=== PATIENT | male | born 1975 | race African-American/Black ===

== ENCOUNTER 2018-12-01 08:14 | Emergency (ER) | payer MEDICAID ==
--- NOTE | 2018-12-01 09:07 | ED Physician Chart ---
ED Chief Complaint/HPI - Patient Information Date Seen:: 12/01/18 Time Seen:: 09:00 Chief Complaint:: chest pain History of Present Illness:: [place] and he developed right-sided crampy chest pain and right arm tingling and numbness. He also experienced mild shortness of breath. For the last 2 days patient's has had right sided chest pain coming every few minutes and lasting about 2 minutes. No diaphoresis. No recent trauma or heavy lifting. Allergies:: Allergies Allergy/AdvReac Type Severity Reaction Status Date / Time No Known Allergies Allergy Verified 12/01/18 08:33 Vitals:: Vital Signs - 8 hr 12/01/18 08:34 Temp 98.4 F HR 66 RR 16 BP 146/79 O2 Sat % 100 Historian:: Patient Review:: Nurse's Note Reviewed ED Review of Systems - Review of Systems General/Constitutional: No fever, No chills, No weight loss, No weakness, No diaphoresis, No edema, No loss of appetite Skin: No skin lesions, No rash, No bruising Head: No headache, No light-headedness Eyes: No loss of vision, No pain, No diplopia ENT: No earache, No nasal drainage, No sore throat, No tinnitus Neck: No neck pain, No swelling, No thyromegaly, No stiffness, No mass noted Cardio Vascular: No palpitations, No PND, No orthopnea, No edema Pulmonary: SOB, No cough, No sputum, No wheezing GI: No nausea, No vomiting, No diarrhea, No pain, No melena, No hematochezia, No constipation, No hematemesis G/U: No dysuria, No frequency, No hematuria Musculoskeletal: Other (tingling and numbness right) Endocrine: No polyuria, No polydipsia Psychiatric: No prior psych history, No depression, No anxiety, No suicidal ideation Hematopoietic: No bruising, No lymphadenopathy Allergic/Immuno: No urticaria, No angioedema Neurological: No syncope, No focal symptoms, No weakness, No paresthesia, No headache, No seizure, No dizziness, No confusion, No vertigo ED Past Medical History - Past Medical History Past Medical History: Asthma/COPD Family History: Heart disease, Diabetes Melitus, Other (cardiomegaly) Social History: Smoker, Alcohol, Other Employment:: Smokes one pack of cigarettes a day and drinks alcohol occasionally Surgical History: other (peptic ulcer disease and fractured mandible) Psychiatricy History: None Medication: None Family Medical History - Family Member Father Hx Family Stroke: Yes ED Physical Exam - Physical Examination General/Constitutional: Awake, Well-developed, well-nourished, Alert, No distress, GCS 15, Non-toxic appearing, Ambulatory Head: Atraumatic Eyes: Lids, conjuctiva normal, PERRL, EOMI Skin: Nl inspection, No rash, No skin lesions, No ecchymosis, Well hydrated, No lymphadenopathy ENMT: External ears, nose nl, Nasal exam nl, Lips, teeth, gums nl Neck: Nontender, Full ROM w/o pain, No JVD, No nuchal rigidity, No bruit, No mass, No stridor Respiratory: Nl effort/Exclusion, Clear to Auscultation, No Wheeze/Rhonchi/Rales Cardio Vascular: RRR, No murmur, gallop, rubs, NL S1 S2 GI: No tenderness/rebounding/guarding, No organomegaly, No hernia, Normal BS's, Nondistended, No mass/bruits, No McBurney tenderness : No CVA tenderness Extremities: No tenderness or effusion, Full ROM, normal strength in all extremities, No edema, Normal digits & nails Neuro/Psych: Alert/oriented, DTR's symmetric, Normal sensory exam, Normal motor strength, Judgement/insight normal, Mood normal, Normal gait, No focal deficits Misc: Normal back, No paraspinal tenderness ED Labs/Radiology/EKG Results - Lab Results Results: Laboratory Results WBC 9.8 Th/cmm (4.8-10.8) 12/01/18 09:15 RBC 4.53 Mil/cmm (4.30-5.70) 12/01/18 09:15 Hgb 14.5 gm/dL (12-16) 12/01/18 09:15 Hct 42.5 % (41.0-60) 12/01/18 09:15 MCV 93.8 fl (80-99) 12/01/18 09:15 MCH 32.0 pg (26.0-30.0) H 12/01/18 09:15 MCHC Differential 34.1 pg (28.0-36.0) 12/01/18 09:15 RDW 11.6 % (11.5-20.0) 12/01/18 09:15 Plt Count 291 Th/cmm (150-400) 12/01/18 09:15 MPV 7.2 fl 12/01/18 09:15 Neutrophils % 71.6 % (40.0-80.0) 12/01/18 09:15 Lymphocytes % 20.0 % (20.0-50.0) 12/01/18 09:15 Monocytes % 5.6 % (2.0-10.0) 12/01/18 09:15 Eosinophils % 1.7 % (0.0-5.0) 12/01/18 09:15 Basophils % 1.1 % (0.0-2.0) 12/01/18 09:15 Sodium 140 mEq/L (136-145) 12/01/18 09:15 Potassium 4.2 mEq/L (3.5-5.1) 12/01/18 09:15 Chloride 107 mEq/L (98-107) 12/01/18 09:15 Carbon Dioxide 24.5 mEq/L (21.0-31.0) 12/01/18 09:15 Anion Gap 12.7 (7.0-16.0) 12/01/18 09:15 BUN 14 mg/dL (7-25) 12/01/18 09:15 Creatinine 0.9 mg/dL (0.7-1.3) 12/01/18 09:15 Est GFR ( Amer) > 60.0 ml/min (>90) 12/01/18 09:15 Est GFR (Non-Af Amer) > 60.0 ml/min 12/01/18 09:15 BUN/Creatinine Ratio 15.6 12/01/18 09:15 Glucose 114 mg/dL (70-105) H 12/01/18 09:15 Calcium 9.2 mg/dL (8.6-10.3) 12/01/18 09:15 Magnesium 2.0 mg/dL (1.9-2.7) 12/01/18 09:15 Troponin I < 0.01 ng/mL (0.01-0.05) L 12/01/18 09:15 - Radiology Results Results: Chest x-ray normal - EKG Interpretations Rate & Rhythm: normal sinus rhythm with a rate of 55 [place]: normal Comments:: T inversions in leads V1 and V2 and concave ST elevation in leads V3 to V6 and slightly in the inferior leads ED Assessment - Assessment General Assessment: Patient's cardiac workup is basically negative except for some concave ST elevation on the EKG which is probably due to early repolarization. However the patient has a very significant risk factor of smoking one pack of cigarettes a day so I strongly recommended admission to the patient. I stressed to the patient how important smoking cigarettes is in contributing to heart disease. Patient stated he has no one to take care of his son right now but he will come back later today to be admitted. We obtained authorization from the patient's insurance to admit him. I asked patient to sign out AGAINST MEDICAL ADVICE to protect me and the hospital but told him we are always happy to have him return any time for admission. ED Septic Shock - . Is Septic Shock (SBP<90, OR Lactate>4 mmol\L) present?: No - <6hrs of presentation: Vital Signs: Vital Signs - 8 hr 12/01/18 08:34 Temp 98.4 F HR 66 RR 16 BP 146/79 O2 Sat % 100 ED Reassessment (Disposition) - Reassessment Reassessment Condition:: Unchanged - Diagnosis Diagnosis:: Chest pain; nicotine use - Aftercare/Follow up Instructions Aftercare/Follow-Up Instructions:: Counseled pt regarding lab results/diagnosis & need follow up - Patient Disposition Discharge/Transfer:: Against Medical Advice Condition at Disposition:: Stable, Unchanged
--- NOTE | 2018-12-01 09:17 | Diagnostic Imaging Report ---
Portable chest x-ray History: Pain Allowing for portable technique the heart size is normal. No focal pulmonary parenchymal processes. No hilar or mediastinal abnormalities. Impression: No acute abnormalities.
[2018-12-01 09:26] LABS: % BASOPHILS 1.1 % (0.0-2.0); % EOSINOPHILS 1.7 % (0.0-5.0); % MONOCYTES 5.6 % (2.0-10.0); % NEUTROPHILS 71.6 % (40.0-80.0); BASOPHILE ABSOLUTE 0.1 Th/cumm (0-0.2); EOSINOPHILE ABSOLUTE 0.2 Th/cmm (0.1-0.4); HEMATOCRIT 42.5 % (41.0-60); HEMOGLOBIN 14.5 gm/dL (12-16); MEAN CELL VOLUME 93.8 fl (80-99); MEAN CORPUSCULAR HGB CONC 34.1 pg (28.0-36.0); MEAN PLATELET VOLUME 7.2 fl; MONOCYTE ABSOLUTE 0.5 Th/cmm (0.3-1.0); PLATELET COUNT 291 Th/cmm (150-400); RED BLOOD COUNT 4.53 Mil/cmm (4.30-5.70); RED CELL DISTRIBUTION WIDTH 11.6 % (11.5-20.0); WHITE BLOOD COUNT 9.8 Th/cmm (4.8-10.8)
[2018-12-01 09:37] LABS: ANION GAP 12.7 (7.0-16.0); BUN - UREA NITROGEN 14 mg/dL (7-25); CALCIUM SERUM 9.2 mg/dL (8.6-10.3); CARBON DIOXIDE 24.5 mEq/L (21.0-31.0); CHLORIDE 107 mEq/L (98-107); CREATININE - SERUM 0.9 mg/dL (0.7-1.3); GFR AFRICAN-AMERICAN > 60.0 ml/min (>90); GFR NON AFRICAN-AMERICAN > 60.0 ml/min; GLUCOSE 114 mg/dL (70-105); POTASSIUM SERUM 4.2 mEq/L (3.5-5.1); SODIUM SERUM 140 mEq/L (136-145)
== END 2018-12-01 11:42 | disposition left against medical advice (07) ==
LOC: ER 08:14
DX: R07.89 Other chest pain (principal); J44.9 Chronic obstructive pulmonary disease, unspecified; F17.210 Nicotine dependence, cigarettes, uncomplicated
CPT/HCPCS: 36415-UA; 71045-TC; 80048-TC; 83735-TC; 84484-TC; 85025-TC; 93005